=== PATIENT | female | born 1990 | race Caucasian/White ===

== ENCOUNTER 2016-07-25 12:11 | Day surgery (SDC) | payer OTHER ==
[~2016-07-25] VITALS: Ht 162.6 cm; Wt 64.1 kg
[~2016-07-25 12:11] MED LIST: ETON1VAG VAGINAL; FLUO20TA28 PO; KEN25CR EXT; Lactated Ringer's 1,000 ML IV ONE; PROP10TA8 PO; RIZA5TAB34 PO; SULF1TAB35 PO; TRAZ-115 PO
[2016-07-25] MEDS ORDERED: Propofol 10,000 mCg/mL 20 mL Inj ONE (12:12)
[2016-07-25 12:40] VITALS: BP 128/81; PULSE 72; RESP 14; O2SAT 100
[2016-07-25] MEDS ORDERED: Lactated Ringer's 1,000 ML IV SCH (13:46)
--- NOTE | 2016-07-25 13:46 | PCM.HPANE ---
Patient Data Surgeon Admitting Provider: Attending Provider:Jeremiah Paulson MD Primary Care Physician:Bob Lemos DO Other Provider:Leslie Pastrana Anesthesia Reason for Visit Irritable Bowel Syndrome, Gerd Ht/WT & BMI Height (Feet): 5 Height (Inches): 4 Weight (Kilograms): 64.09 Body Mass Index 24.00 Allergies Coded Allergies: acetaminophen (Verified Adverse Reaction, Intermediate, N/V, 07/24/16) lactose (Verified Adverse Reaction, Intermediate, GI UPSET, 07/24/16) oxycodone (Verified Adverse Reaction, Intermediate, N/V, 07/24/16) Past Anesthesia History Anesthesia History: Denies:: Abnormal Airway, Anesthesia Reactions, Difficult Intubation, Fam Anesthesia Reaction, Fam Malignant Hypertherm, Malignant Hyperthermia Diabetes History Hx Diabetes?: No MRSA MRSA: No Medications Hypertension Medication: No Home Meds Incl Beta Catherine: No Reported Medications Triamcinolone Acet (Triamcinolone Acetonide Cream)1 Applic/0.25 Gm Cr1 Applic EXT BID #60 GM Ref 0 07/24/16 Trazodone 50 Mg [id number] Mg PO HS Ref 0 07/24/16 Propranolol HCl 10 Mg Tablet5 Mg PO TID 90 Days Ref 0 07/24/16 Etonogestrel/Ethinyl Estradiol (Nuvaring Vaginal Ring)1 Each Vag.ring1 Each VAGINAL 07/24/16 Rizatriptan (Maxalt)5 Mg Tablet5 Mg PO 07/24/16 Fluoxetine 20 Mg [id number] Mg PO DAILY Ref 0 07/24/16 Discontinued Reported Medications Sulfamethoxazole/Trimeth 800-160 mg (Bactrim DS 800-160 mg)1 Each Tablet1 Tablet PO BID Ref 0 07/24/16 History HEENT History: Positive for:: Dysphagia (OCCASIONAL) Denies:: Abnormal Airway Difficult Intubation Hearing Problem Hx of Heart Problems?: No Hx of Respiratory Problem?: No Neurological History: Denies:: CVA Hx of GI Problems?: Yes Gastrointestinal History: Positive for:: Gastroesphageal Reflux Rectal Bleeding (BOTH) Denies:: Cirrhosis Diverticulitis Gall Bladder Disease Hiatal Hernia Liver Disease Female Hx: Positive for:: Currently ( CONTROL) Musculoskeletal History: Denies:: Fibromyalgia Joint Replacement Psycho Social History: Positive for:: Anxiety Hx Depression Hx Surgeries?: Yes (LOWER BACK LIPOMA, R SHOULDER, L FOOT X2) Hx Any Other Health Problems?: Yes Hx Diabetes: No Hx Alcohol Use: Yes Stop/Bang Treated for Sleep Apnea?: No Do You Have a CPAP Machine?: No S-Snoring: Do You Snore Loudly: No T-Tired: feel tired, fatigued: No O-Obsered: Observed not breath: No P-Blood Pressure: treated: No B- Body Mass Index > 35 kg/m2: No A- Age over 50: No N- Neck Large Circumference: No G- Gender Male: No NANCY Total Score: 0 NANCY Risk Assessment: Low Risk, <3 Yes Risk Assessment Category Category 1A: Patient has history of documented sleep apnea, and HAS NOT received any narcotic, sedative or anesthesia administration during this stay. Category 1B: Patient has history of documented sleep apnea, and HAS received any narcotic , sedative or anesthesia administration during this stay Category 2: Patient has SUSPECTED Obstructive Sleep Apnea, and HAS received any narcotic , sedative or anesthesia administration during this stay. Category 3: Patient has SUSPECTED Obstructive Sleep Apnea and HAS NOT received narcotic, sedative or anesthesia administration during this stay. Category 4: Outpatient in Procedural Areas with known sleep apnea or who screen positive for High Risk via the STOP/BANG questionnaire. Exam Exam Vital Signs Vital Signs Date Time Temp Pulse Resp B/P Pulse Ox O2 Delivery O2 Flow Rate FiO2 07/25/16 12:40 36.9 72 14 128/81 100 Room Air General Appearance: Oriented X3 HEENT/AIRWAY: MP 1 Lungs: Normal Air Movement Heart: Regular Rate/Rhythm Plan Impression Patient chart reviewed, patient interviewed and anesthestic plan with risks, benefits, and alternatives discussed, and informed consent obtained. ASA Physical Status: ASA2 Mod Systemic Disease Anesthetic Plan: MAC Bene/Risks/Altern/Consents: Yes HP Complete Prior to Induction: Yes Sky Linton MD Jul 25, 2016 13:46
[2016-07-25] MEDS ORDERED: MetoCLOpramide 5 mg/mL 2 mL Inj IVPUSH PRN (13:50)
[2016-07-25] MEDS ORDERED: Ondansetron 2 mg/mL 2 mL Inj IVPUSH PRN (13:50)
[2016-07-25 14:29] VITALS: BP 98/62; PULSE 88; RESP 14; O2SAT 98
--- NOTE | 2016-07-25 14:35 | PCM.ANEP2 ---
Post Anesthesia Evaluation ASA/CMS Post Anesthesia VS in Patient's Normal Range?: Yes Resp Stable; Airway Patent?: Yes CV Function & Hydration Stable: Yes Mental Status Recovered?: Yes Pain control Satisfactory?: Yes N/V Control Satisfactory?: Yes Sky Linton MD Jul 25, 2016 14:35
--- NOTE | 2016-07-25 14:35 | PCM.ANEP1 ---
Post Anesthesia Phase 1 PACU Phase 1 Assessment Vital Signs Vital Signs Date Time Temp Pulse Resp B/P Pulse Ox O2 Delivery O2 Flow Rate FiO2 07/25/16 14:29 88 14 98/62 98 Room Air 07/25/16 12:40 36.9 72 14 128/81 100 Room Air Anesthetic Administered: MAC Level of Alertness: Awake, talking Pain: No Nausea or Vomiting: No Oxygen Delivery: Room Air Lungs: Normal Air Movement Sky Linton MD Jul 25, 2016 14:35
[2016-07-25 14:39] VITALS: BP 94/56; PULSE 71; PULSE 76; RESP 14; RESP 16; O2SAT 100; O2SAT 96
[2016-07-25 14:49] VITALS: BP 107/57; PULSE 60; RESP 16; O2SAT 100
--- NOTE | 2016-07-25 16:48 | ENDO ---
[address] [address] ENDOSCOPY PROCEDURE PATIENT: NIKKO SUAREZ : 1990 MR#: [id number] ADMIT: 07/25/2016 JOB ID: [id number] PROCEDURES: 1. Esophagogastroduodenoscopy. 2. Colonoscopy. INDICATIONS: Gastroesophageal reflux. The patient's ASA classification is 1, Mallampati score 1. MEDICATIONS: ASA classification and Mallampati score is per Dr. Linton's anesthesia report. INSTRUMENT USED: GIF H 180 J. PROCEDURE DETAILS: After informed consent was obtained, the patient was brought into the GI suite, where she was placed on oxygen via nasal cannula and monitored with continuous pulse oximeter, telemetry, and blood pressure monitoring. A time-out was performed and then she was placed in the left lateral decubitus position and medications were administered for sedation. A bite block was placed. The standard EGD scope was inserted through the bite block and advanced to the second portion of the duodenum without difficulty. FINDINGS: 1. Normal-appearing duodenal bulb, first and second portion. Multiple random biopsies were obtained. 2. Normal-appearing pylorus, antrum and gastric body. 3. Retroflexed views in the gastric body revealed a normal-appearing cardia and fundus. 4. Multiple random biopsies were obtained throughout the antrum and body of the stomach. 5. Normal-appearing GE junction with a regular Z-line at 40 cm. 6. Normal-appearing esophagus. IMPRESSION: Normal esophagogastroduodenoscopy exam to second portion of duodenum. RECOMMENDATIONS: 1. Await biopsy results. 2. Proceed to colonoscopy. COMPLICATIONS: None. ESTIMATED BLOOD LOSS: Less than 5 mL. PROCEDURE NUMBER TWO: Colonoscopy. INDICATION: Alternating constipation and diarrhea. Please see above for ASA classification, Mallampati score, and medications. INSTRUMENT: PCF H 180 AL. PREPARATION QUALITY: Good. PROCEDURE IN DETAIL: After completion of the EGD exam, a digital rectal exam was performed and was unremarkable. The colonoscope was then inserted into the rectum and advanced under direct visualization to the terminal ileum which was identified by the presence of the ileocecal valve and villous- appearing mucosa of terminal ileum. Once the terminal ileum was reached, the colonoscope was then withdrawn back to the rectum and the mucosa and lumen were examined. In the rectum, retroflexion was performed. Following retroflexion, remaining air in the rectum was suctioned, and procedure was completed. EXAM FINDINGS: Normal exam from rectum to terminal ileum. ASSESSMENT: Normal colonoscopy. RECOMMENDATION: 1. MiraLAX daily. 2. Follow up in GI clinic. COMPLICATION: None. ESTIMATE OF BLOOD LOSS: 0
--- NOTE | 2016-07-29 14:23 | PATH ---
SURGICAL PATHOLOGY Attending Physician:Ramya Oro CASE STATUS: Signed Out PATIENT NAME: NIKKO SUAREZ PID: [id number] : 1990 DATE COLLECTED:07/25/2016 00:00 SPECIMEN: 1: Duodenum, Biopsy 2: Gastric, Biopsy CLINICAL HISTORY: GERD, PERSONAL HISTORY OF IRRITABLE BOWEL SYNDROME 1). DUODENUM BIOPSY 2). GASTRIC BIOPSY FINAL DIAGNOSIS: 1.DUODENUM BIOPSY: FRAGMENTS OF NORMAL-APPEARING SMALL BOWEL MUCOSA. Normal delicate mucosal villi present. Negative for significant inflammation, dysplasia and malignancy. 2.GASTRIC BIOPSY: MILD CHRONIC GASTRITIS INVOLVING FUNDIC MUCOSA. Negative for evidence of Helicobacter. Negative for intestinal metaplasia. Negative for dysplasia and malignancy. ICD10 code K29.70 GROSS DESCRIPTION: Received are two formalin-filled containers, both labeled with the patient' s name: 1. Received in formalin, labeled with the patient' s name and "duodenum BX", are four fragments of hayes, soft tissue ranging in size from 0.1 x 0.1 x 0.1 cm to 0.2 x 0.1 x 0.1 cm. All fragments are totally submitted in cassette 1A. 2. Received in formalin, labeled with the patient' s name and "gastric BX", are two fragments of hayes, soft tissue ranging in size from 0.2 x 0.1 x 0.1 cm to 0.2 x 0.2 x 0.1 cm. All fragments are totally submitted in cassette 2A. ([id number]) MICRO DESCRIPTION: See diagnosis. ICD-9 CODES: CPT CODES: 1: 62451 2: 00217 Electronically Signed Out Tim Tadeo MD [facility] [address], [place] [address] Technical component performed at [facility], [address], [place], [address]
== END 2016-07-25 23:59 | disposition home or self-care (01) ==
LOC: END 12:11
PROVIDERS: ATTEND Internal Medicine Gastroenterology
DX: K21.9 Gastro-esophageal reflux disease without esophagitis (principal); K29.50 Unspecified chronic gastritis without bleeding; K58.9 Irritable bowel syndrome, unspecified; F41.9 Anxiety disorder, unspecified; F32.9 Major depressive disorder, single episode, unspecified; N80.9 Endometriosis, unspecified
CPT/HCPCS: 43239; 45378; 99153; G0500; J7120